=== PATIENT | female | born 1995 | race Caucasian/White ===

== ENCOUNTER 2017-01-08 01:56 | Emergency (ER) | payer MEDICAID ==
[2017-01-08] MEDS ORDERED: LIDOCAINE/EPI 2% 1:100,000 20 ML VIAL ONE (02:37)
--- NOTE | 2017-01-08 02:53 | ER PHYSICIAN DOCUMENTATION ---
Physician Documentation [facility] Name:Estee Chacon Age:21 yrs Sex:Female :1995 Arrival Date:01/08/2017 Time:01:56 Bed1 Private MD:Linsey Stein ED, [place] Disposition: 01/08/17 02:38 Discharged to Home/Self Care. Impression: Abscess. - Condition is Good. - Discharge Instructions: Abscess - ABSCESS, I and D. - Prescriptions for Bactrim DS 160- 800 mg Oral Tablet - take 1 tablet by ORAL route every 12 hours for 10 days; 20 tablet. - Medical Reconciliation form form. - Follow up: Linsey Stein; When: As needed; Reason: Worsening of condition. - Problem is new. - Symptoms have improved. HPI: 01/08 02:39 This 21 yrs old Female presents to ER via Walk In with complaints of Arm sc Injury - LEFT. 02:39 The patient presents with an abscess of the left axilla. Description: The affected area sc is small, localized, well demarcated. Onset: The symptom(s)/episode began/occurred today. Possible cause(s): staph infections in past. Associated signs and symptoms: The patient has no apparent associated signs or symptoms. Severity of symptoms: At their worst the symptoms were moderate. Historical: - Allergies: Vancomycin; - Home Meds: 1. None - PMHx: None; - PSHx: None; - Tetanus: < 10 years. - Ebola Screening: : Patient denies exposure to infectious person. Patient denies travel to an Ebola-affected area in the 21 days before illness onset. . - Immunization history: Flu Vaccine None. - Social history: Smoking status: Patient uses tobacco products, current every day smoker. Patient uses alcohol occasionally. ROS: 02:39 Constitutional: Negative for fever, chills, and weight loss. sc Eyes: Negative for injury, pain, redness, and discharge. Neck: Negative for injury, pain, and swelling. Cardiovascular: Negative for chest pain, palpitations, and edema. Respiratory: Negative for shortness of breath, cough, wheezing, and pleuritic chest pain. Back: Negative for injury and pain. 02:39 Neuro: Negative for headache, weakness, numbness, tingling, and seizure. sc 02:39 Skin: Positive for abscess. Exam: Constitutional: This is a well developed, well nourished patient who is awake, alert, and in no acute distress. Head/Face: Normocephalic, atraumatic. Eyes: Pupils equal round and reactive to light, extra-ocular motions intact. Lids and lashes normal. Conjunctiva and sclera are non-icteric and not injected. Cornea within normal limits. Periorbital areas with no swelling, redness, or edema. Neck: Trachea midline, no thyromegaly or masses palpated, and no cervical lymphadenopathy. Supple, full range of motion without nuchal rigidity, or vertebral point tenderness. No meningismus. Back: No spinal tenderness. No costovertebral tenderness. Full range of motion. 02:40 Skin: Warm, dry with normal turgor. Normal color with no rashes, no lesions, and no sc evidence of cellulitis. 02:40 Skin: abscess, that is small, cellulitis, is not appreciated, injury, is not appreciated. Vital Signs: 02:07 BP 110 / 91; Pulse 81; Resp 20; Temp 98.5; Pulse Ox 94% on R/A; Weight 72.57 kg; Height lb 5 ft. 4 in. (162.56 cm); Pain 8/10; 02:07 Body Mass Index 27.46 (72.57 kg, 162.56 cm) lb Procedures: 02:40 I & D: Incision and drainage was performed for an abscess of the left axilla. Prepped sc with Betadine, Anesthetized with ml's 2% Lidocaine with epinephrine. 2 ml's 2% Lidocaine with epinephrine. Incised with #11 blade. Drained small amount purulent fluid. the patient tolerated the procedure well. MDM: 02:18 Patient medically screened. sc 02:41 Differential diagnosis: abscess. Data reviewed: vital signs, nurses notes, and as a sc result, I will discharge patient, administer antibiotics. Dispensed Medications: 02:51 Drug: Bactrim (160 mg-800 mg (DS) 1 tabs; Route: PO; lb 02:52 Follow up: Response: No adverse reaction lb Signatures: Rainer Stein MD MD oh Kristi Montes De Oca lb
--- NOTE | 2017-01-08 02:53 | ER NURSING DOCUMENTATION ---
Nurse's Notes [facility] Name:Estee Chacon Age:21 yrs Sex:Female :1995 Arrival Date:01/08/2017 Time:01:56 Bed1 Private MD:Linsey Stein Diagnosis:Abscess Presentation: 01/08 01:58 Presenting complaint: Patient states: swelling under left axilla since this am. hot lb packed at home without relief. Transition of care: Home. Notified ED Physician of Dr. Stein notified. 01:58 Acuity: SUMMER 4 lb 01:58 Method Of Arrival: Walk In Triage Assessment: 02:05 General: Appears uncomfortable, Behavior is cooperative, pleasant. Pain: Complains of lb pain in left axilla Pain does not radiate. Pain currently is 8 out of 10 on a pain scale. Pain began 1 day ago. Musculoskeletal: Swelling present in left axilla Tenderness Reports pain in left axilla. Injury Description: no injury. Historical: - Allergies: Vancomycin; - Home Meds: 1. None - PMHx: None; - PSHx: None; - Tetanus: < 10 years. - Ebola Screening: : Patient denies exposure to infectious person. Patient denies travel to an Ebola-affected area in the 21 days before illness onset. . - Immunization history: Flu Vaccine None. - Social history: Smoking status: Patient uses tobacco products, current every day smoker. Patient uses alcohol occasionally. Screenin:08 Infectious Disease Risk None. Abuse screen: Denies threats or abuse. Denies injuries lb from another. Nutritional screening: No deficits noted. Assessment: 02:52 See Triage Assessment done by same RN. lb Vital Signs: 02:07 BP 110 / 91; Pulse 81; Resp 20; Temp 98.5; Pulse Ox 94% on R/A; Weight 72.57 kg; Height lb 5 ft. 4 in. (162.56 cm); Pain 8/10; 02:07 Body Mass Index 27.46 (72.57 kg, 162.56 cm) lb ED Course: :57 Patient arrived in ED. ma1 01:57 Linsey Stein is Private Physician. ma1 01:58 Kristi Montes De Oca is Primary Nurse. lb 02:05 Triage completed. lb 02:08 Valuables Remains with patient. lb 02:09 Rainer Stein MD is Attending Physician. mt 02:38 Linsey Stein is Referral Physician. mt 02:52 Assist Provider Assist provider with I & D: of an abscess on left axilla. lb Administered Medications: 02:51 Drug: Bactrim (160 mg-800 mg (DS) 1 tabs; Route: PO; 02:52 Follow up: Response: No adverse reaction lb Outcome: 02:38 Discharge ordered by MD. mt 02:52 Discharged to home ambulatory. 02:52 Condition: good 02:52 Discharge Assessment: Patient awake, alert and oriented x 3. No cognitive and/or functional deficits noted. Patient verbalized understanding of disposition instructions. 02:52 Instructed on discharge instructions, follow up and referral plans. 02:53 Patient left the ED. 01/09 11:23 Discharge F/U Call: Unable to reach: no answer Signatures: Florence Addison, RN RN Rainer Yanez MD MD sc Bollock, Lynda Sparkle Jarquin utTeressa
[2017-01-08] MEDS ORDERED: SULFAMETHOXAZOLE/TMP 800/160MG 1 EA TABLET PO ONE (02:55)
== END 2017-01-08 02:53 | disposition home or self-care (01) ==
LOC: ER 01:56
DX: L02.412 Cutaneous abscess of left axilla (principal); F17.210 Nicotine dependence, cigarettes, uncomplicated
CPT/HCPCS: 10060; 99283